=== PATIENT | female | born 2000 | race Caucasian/White ===

== ENCOUNTER → 2021-03-30 | Outpatient (CLI) | payer OTHER | LOC: M.ULTRA 15:57 | PROVIDERS: ATTEND Nurse Practitioner | DX: R10.2 Pelvic and perineal pain (principal); R19.5 Other fecal abnormalities; R10.30 Lower abdominal pain, unspecified; Z83.79 Family history of other diseases of the digestive system; R14.0 Abdominal distension (gaseous) ==